=== PATIENT | female | born 1985 | race Hispanic/Latino ===

== ENCOUNTER 2023-12-19 11:17 | Inpatient (IN) | payer SELFPAY ==
[2023-12-19 13:35] LABS: Bacteria/HPF None Seen HPF (None Seen); Bilirubin Negative (Negative); Blood, Urine Negative (Negative); CAUTI Indications for Culture Dysuria,urgency,freq; Clarity Clear (Clear); Glucose, Urine (Dipstick) Greater than 1000 mg/dL (Negative); Ketone, Urine 150 mg/dL (Negative); Leukocyte Negative Leu/uL (Negative); Nitrite Negative (Negative); Pregnancy Test - Urine (BHCG) Negative (Negative); Pregu Control Background? CLEAR/WHITE (CLR/WHITE); Pregu Control Bar Appear? YES (CONTROL BAR); Protein, Urine (Dipstick) Negative (Neg-Trace); RBC/HPF 0-3 HPF (0-3); Specific Gravity 1.036 (1.002-1.036); Specific Gravity, Urine 1.036 (1.002-1.036); Squamous Epithelial 0-3 HPF (0-3); Urobilinogen Normal mg/dL (Less than 2); WBC/HPF 0-3 HPF (0-3)
[2023-12-19 13:36] LABS: Urine Culture Reflex No No
[2023-12-19] MEDS ORDERED: Ketorolac Tromethamine 30 MG (1 mL) VIAL ONE (14:33)
[2023-12-19 15:37] LABS: #Basophils 0.04 10x3/uL (0.0-0.2); %Basophils 0.7 % (0.0-1.0); %Eosinophils 0.7 % (0.0-10.0); %Lymphocytes 30.5 % (21.0-51.0); %Monocytes 7.8 % (0.0-10.0); Hematocrit 40.9 % (36.0-47.0); Hemoglobin 14.1 g/dL (12.0-16.0); Mean Corpuscular HGB CONC 34.5 g/dL (32.0-36.0); Mean Corpuscular Volume 78.4 fL (78.0-98.0); Mean Platelet Volume 9.4 fL (7.4-10.4); Platelet Count 254 10x3/uL (130-400); RBC Distribution Width 17.3 % (11.5-14.5); Red Blood Cell (RBC) Count 5.22 mill/uL (4.20-5.40)
[2023-12-19 15:58] LABS: Troponin I Less than 0.010 ng/mL (< 0.028)
[2023-12-19 16:08] LABS: ALT (SGPT) 9 U/L (8-55); AST (SGOT) 9 U/L (5-34); Albumin 3.4 g/dL (3.5-5.0); Alkaline Phosphatase 118 U/L (40-110); Anion Gap 17 mmol/L (10-20); BUN (Urea Nitrogen) 12 mg/dL (7.0-18.7); Bilirubin, Total 0.4 mg/dL (0.2-1.2); Calc. Creatinine Clearance 0 mL/min (70-130); Calcium 8.9 mg/dL (7.8-10.44); Carbon Dioxide 11 mmol/L (22-29); Chloride 102 mmol/L (98-107); Estimated GFR 86; Globulin 3.8 g/dL (2.4-3.5); Glucose 475 mg/dL (70-105); Lipase 62 U/L (8-78); Potassium 3.1 mmol/L (3.5-5.1); Protein, Total 7.2 g/dL (6.0-8.3); Sodium 127 mmol/L (136-145)
[2023-12-19] MEDS ORDERED: Potassium Chloride 20 MEQ TAB ONE (18:11)
[2023-12-19] MEDS ORDERED: Magnesium 2 GM/50 ML BAG (IN WATER) ONE (18:11)
[2023-12-19 18:30] LABS: Analyzer IN Cardio ER; Base Excess -15.9 mEq/L (-2.0 to +3.0); Calcium, Ionized (venous) 1.07 mmol/L (1.16-1.32); Chloride (VBG) 105 mmol/L (98-106); Hematocrit-VBG 42 % (36.0-47.0); Hemoglobin (Hb) 14.2 g/dL (11.7-15.5); Potassium (VBG) 4.75 mmol/L (3.70-5.30); Sodium 131 mmol/L (133-146); pH (venous) 7.228 (7.32-7.43)
[2023-12-19 18:57] LABS: Actual Bicarbonate (HCO3v) 9.8 mEq/L (22-28)
[2023-12-19] MEDS ORDERED: Ondansetron PF 4 MG/2 ML Vial IVP PRN (20:21)
[2023-12-19] MEDS ORDERED: D5 1/2 NS w/20 mEq KCL 1,000 ML IV PRN (20:21)
[2023-12-19] MEDS ORDERED: Calcium Carbonate 500 MG ChewTAB PO PRN (20:21)
[2023-12-19] MEDS ORDERED: Dextrose 50% Abboject 50 ML SYRINGE SLOW IVP PRN (20:21)
[2023-12-19] MEDS ORDERED: Sodium Chloride 0.9% 1,000 ML IV PRN ×4 (20:21)
[2023-12-19] MEDS ORDERED: Dextrose 5 %-0.45 % NaCl 1,000 ML IV PRN (20:21)
[2023-12-19] MEDS ORDERED: Ondansetron ODT 4 MG TAB PO PRN (20:21)
[2023-12-19] MEDS ORDERED: Electrolyte Replacement Protocol 1 EACH IVPB PRN (20:21)
[2023-12-19] MEDS ORDERED: NS 0.9% w/ 20 MEQ KCL 1,000 ML IV PRN ×2 (20:21)
[2023-12-19] MEDS ORDERED: Acetaminophen 325 MG TAB PO PRN (20:21)
[2023-12-19] MEDS ORDERED: NS 0.9% w/ 20 MEQ KCL 0 ML ONE (20:27)
[2023-12-19] MEDS ORDERED: INSULIN REGULAR IN 0.9 % NACL 100 ML IVPB SCH (20:30)
[2023-12-19 20:34] LABS: ALT (SGPT) 8 U/L (8-55); AST (SGOT) 8 U/L (5-34); Albumin 3.2 g/dL (3.5-5.0); Alkaline Phosphatase 99 U/L (40-110); Anion Gap 19 mmol/L (10-20); BUN (Urea Nitrogen) 9 mg/dL (7.0-18.7); Bilirubin, Total 0.3 mg/dL (0.2-1.2); Calc. Creatinine Clearance 0 mL/min (70-130); Carbon Dioxide 11 mmol/L (22-29); Chloride 105 mmol/L (98-107); Estimated GFR 114; Globulin 3.5 g/dL (2.4-3.5); Glucose 251 mg/dL (70-105); Potassium 2.8 mmol/L (3.5-5.1); Protein, Total 6.7 g/dL (6.0-8.3); Sodium 132 mmol/L (136-145)
[2023-12-19] MEDS ORDERED: traMADol HCl 50 MG TAB PO PRN (21:00)
[2023-12-19 21:39] LABS: Anion Gap 20 mmol/L (10-20); BUN (Urea Nitrogen) 9 mg/dL (7.0-18.7); Calc. Creatinine Clearance 0 mL/min (70-130); Calcium 8.4 mg/dL (7.8-10.44); Carbon Dioxide 10 mmol/L (22-29); Chloride 107 mmol/L (98-107); Estimated GFR 112; Glucose 250 mg/dL (70-105); Potassium 2.9 mmol/L (3.5-5.1); Sodium 134 mmol/L (136-145)
[2023-12-19] MEDS: Lactated Ringer's 1,000 ML IV SCH ×2 (22:19→23:16)
[2023-12-19] MEDS: Potassium Chloride 20 MEQ TAB PO SCH (22:20)
[2023-12-19] MEDS ORDERED: Potassium Chloride 20 MEQ (100 mL) BAG ONE (23:02)
[2023-12-19] MEDS ORDERED: Sodium Bicarbonate Tab 325 MG TAB ONE (23:02)
[2023-12-19] MEDS: Potassium Chloride 20 MEQ in Premix 1 BAG IVPB SCH (23:15)
[2023-12-19] MEDS: Sodium Bicarbonate Tab 325 MG TAB PO SCH (23:16)
[2023-12-20] MEDS ORDERED: Potassium Chloride 20 MEQ (100 mL) BAG ONE ×4 (00:47→08:28)
[2023-12-20 01:59] LABS: Anion Gap 21 mmol/L (10-20); BUN (Urea Nitrogen) 6 mg/dL (7.0-18.7); Calc. Creatinine Clearance 0 mL/min (70-130); Calcium 7.7 mg/dL (7.8-10.44); Carbon Dioxide 8 mmol/L (22-29); Chloride 107 mmol/L (98-107); Estimated GFR 118; Glucose 226 mg/dL (70-105); Potassium 3.1 mmol/L (3.5-5.1); Sodium 133 mmol/L (136-145)
[2023-12-20] MEDS ORDERED: Insulin Lispro 100 UNIT/ML 10 ML VIAL SC PRN (02:14)
[2023-12-20] MEDS ORDERED: Sodium Bicarb 50 MEQ/50 ML Abboject 8.4% SYRINGE IVP SCH (02:15)
[2023-12-20] MEDS ORDERED: Potassium Chloride 20 MEQ TAB PO SCH (02:30)
[2023-12-20] MEDS: Sodium Bicarbonate 150 MEQ in Sterile Water 1,000 ML IV SCH (02:45)
[2023-12-20] MEDS ORDERED: D5 1/2 NS w/20 mEq KCL 1,000 ML ONE (03:13)
[2023-12-20] MEDS: Potassium Chloride 20 MEQ in Premix 1 BAG IVPB SCH ×4 (03:23→15:36)
[2023-12-20] MEDS: D5 1/2 NS w/20 mEq KCL 1,000 ML IV SCH (03:30)
[2023-12-20 03:47] LABS: Analyzer IN Cardio ER; Base Excess -14.7 mEq/L (-2.0 to +3.0); Calcium, Ionized (venous) 1.12 mmol/L (1.16-1.32); Chloride (VBG) 105 mmol/L (98-106); Hematocrit-VBG 43 % (36.0-47.0); Hemoglobin (Hb) 14.7 g/dL (11.7-15.5); Potassium (VBG) 3.48 mmol/L (3.70-5.30); Sodium 133 mmol/L (133-146); pH (venous) 7.264 (7.32-7.43)
[2023-12-20 03:51] LABS: #Basophils 0.04 10x3/uL (0.0-0.2); %Basophils 0.7 % (0.0-1.0); %Eosinophils 1.4 % (0.0-10.0); %Lymphocytes 33.1 % (21.0-51.0); %Monocytes 7.7 % (0.0-10.0); %Neutrophils 56.8 % (42.0-75.0); Hematocrit 39.7 % (36.0-47.0); Hemoglobin 13.4 g/dL (12.0-16.0); Mean Corpuscular HGB CONC 33.8 g/dL (32.0-36.0); Mean Corpuscular Hemoglobin 27.4 pg (27.0-31.0); Mean Corpuscular Volume 81.2 fL (78.0-98.0); Mean Platelet Volume 9.5 fL (7.4-10.4); Platelet Count 230 10x3/uL (130-400); RBC Distribution Width 17.9 % (11.5-14.5); Red Blood Cell (RBC) Count 4.89 mill/uL (4.20-5.40)
[2023-12-20 04:06] LABS: Hemoglobin A1c Greater than 14.0 % (4.0-6.0)
[2023-12-20 04:08] LABS: Actual Bicarbonate (HCO3v) 10.2 mEq/L (22-28)
[2023-12-20] MEDS ORDERED: Electrolyte Replacement Protocol IVPB SCH (04:59)
[2023-12-20] MEDS ORDERED: Dextrose 50% Abboject 50 ML SYRINGE SLOW IVP PRN (04:59)
[2023-12-20] MEDS ORDERED: INSULIN REGULAR IN 0.9 % NACL 100 ML IVPB SCH (05:00)
[2023-12-20] MEDS ORDERED: INSULIN REGULAR IN 0.9 % NACL 100 ML ONE (05:21)
[2023-12-20] MEDS: D5 LR w/20 mEq KCL 1,000 ML IV SCH (05:30)
[2023-12-20 06:03] LABS: ALT (SGPT) 9 U/L (8-55); AST (SGOT) 7 U/L (5-34); Albumin 2.6 g/dL (3.5-5.0); Alkaline Phosphatase 73 U/L (40-110); Anion Gap 20 mmol/L (10-20); BUN (Urea Nitrogen) 5 mg/dL (7.0-18.7); Bilirubin, Total 0.4 mg/dL (0.2-1.2); Calc. Creatinine Clearance 98 mL/min (70-130); Calcium 7.8 mg/dL (7.8-10.44); Carbon Dioxide 11 mmol/L (22-29); Cardiac Risk 7.6 (Less than 4.5); Chloride 107 mmol/L (98-107); Cholesterol 197 mg/dl (< 200 Desired); Estimated GFR 114; Globulin 3.1 g/dL (2.4-3.5); Glucose 267 mg/dL (70-105); HDL Cholesterol 26 mg/dL (>60 Neg Risk); LDL Cholesterol, Calculated 137 mg/dL; Protein, Total 5.7 g/dL (6.0-8.3); Sodium 135 mmol/L (136-145); Triglycerides 170 mg/dL (Less than 150)
[2023-12-20] MEDS ORDERED: Morphine 2 MG/ML VIAL SLOW IVP SCH (07:00)
[2023-12-20] MEDS ORDERED: Sodium Bicarb 50 MEQ/50 ML Abboject 8.4% SYRINGE ONE (07:52)
[2023-12-20] MEDS ORDERED: NOREPINEPHRINE 8 MG/250 ML-D5W 250 ML ONE (07:52)
[2023-12-20] MEDS ORDERED: NOREPINEPHRINE 8 MG/250 ML-D5W 250 ML IVPB SCH (08:00)
[2023-12-20 08:04] LABS: Troponin I Less than 0.010 ng/mL (< 0.028)
[2023-12-20] MEDS: Lactated Ringer's 1,000 ML IV SCH ×2 (08:24→19:31)
[2023-12-20] MEDS: Sodium Bicarb 50 MEQ/50 ML Abboject 8.4% SYRINGE IVP SCH (08:24)
[2023-12-20] MEDS ORDERED: Iopamidol-370 76% 500 ML MDV (1 ML CHARGE) ONE (10:18)
[2023-12-20] MEDS ORDERED: Albumin 25% 100 ML ONE (10:21)
[2023-12-20 10:22] LABS: Actual Bicarbonate (HCO3v) 19.5 mEq/L (22-28); Analyzer IN Cardio ER; Base Excess -3.3 mEq/L (-2.0 to +3.0); Chloride (VBG) 106 mmol/L (98-106); Hematocrit-VBG 38 % (36.0-47.0); Potassium (VBG) 2.74 mmol/L (3.70-5.30); Sodium 134 mmol/L (133-146); pH (venous) 7.449 (7.32-7.43)
[2023-12-20] MEDS ORDERED: Enoxaparin 40 MG (0.4 mL) SYRINGE ONE (10:26)
[2023-12-20] MEDS ORDERED: Dextrose 10% in Water 250 ML ONE (10:53)
[2023-12-20] MEDS: Albumin 25% 25 GM (100 mL) BOT IVPB SCH (10:55)
[2023-12-20] MEDS: Enoxaparin 40 MG (0.4 mL) SYRINGE SC SCH (10:55)
[2023-12-20 10:56] LABS: Anion Gap 15 mmol/L (10-20); BUN (Urea Nitrogen) Less than 4 mg/dL (7.0-18.7); Calc. Creatinine Clearance 132 mL/min (70-130); Calcium 7.7 mg/dL (7.8-10.44); Carbon Dioxide 14 mmol/L (22-29); Chloride 109 mmol/L (98-107); Estimated GFR 123; Glucose 127 mg/dL (70-105); Sodium 135 mmol/L (136-145)
[2023-12-20] MEDS ORDERED: cefTRIAXone (ROCEPHIN) 2 GM VIAL ONE (11:18)
[2023-12-20] MEDS ORDERED: Sodium Chloride 0.9% 100 ML ONE (11:19)
[2023-12-20] MEDS: cefTRIAXone\\ROCEPHIN 2 GM in Sodium Chloride 0.9% 100 ML IVPB SCH (11:23)
[2023-12-20 14:01] LABS: Anion Gap 18 mmol/L (10-20); BUN (Urea Nitrogen) Less than 4 mg/dL (7.0-18.7); Calc. Creatinine Clearance 108 mL/min (70-130); Calcium 8.1 mg/dL (7.8-10.44); Carbon Dioxide 18 mmol/L (22-29); Chloride 102 mmol/L (98-107); Estimated GFR 117; Glucose 409 mg/dL (70-105); Sodium 135 mmol/L (136-145)
[2023-12-20 14:45] VITALS: BMI 20.2
[2023-12-20] MEDS: Polyethylene Glycol 3350 17 GM Packet PO SCH (17:00)
[2023-12-20 19:09] LABS: Anion Gap 7 mmol/L (10-20); BUN (Urea Nitrogen) 4 mg/dL (7.0-18.7); Calc. Creatinine Clearance 127 mL/min (70-130); Carbon Dioxide 26 mmol/L (22-29); Chloride 107 mmol/L (98-107); Estimated GFR 123; Glucose 176 mg/dL (70-105); Potassium 3.3 mmol/L (3.5-5.1); Sodium 137 mmol/L (136-145)
[2023-12-20] MEDS ORDERED: Glucagon 1 MG/ML KIT IM PRN (19:14)
[2023-12-20] MEDS ORDERED: Dextrose 5% in Water 1,000 ML IV PRN (19:14)
[2023-12-20] MEDS: Insulin Glargine 30 UNITS/0.3 ML VIAL SC SCH (19:31)
[2023-12-20] MEDS: Famotidine/PF 20 mg/2ml Vial SLOW IVP SCH (20:08)
[2023-12-20] MEDS: Senokot S 8.6-50 MG TAB PO PRN (23:45)
[2023-12-21 04:14] LABS: ALT (SGPT) Less than 5 U/L (8-55); AST (SGOT) 8 U/L (5-34); Albumin 2.5 g/dL (3.5-5.0); Alkaline Phosphatase 58 U/L (40-110); Anion Gap 11 mmol/L (10-20); BUN (Urea Nitrogen) 5 mg/dL (7.0-18.7); Bilirubin, Total 0.3 mg/dL (0.2-1.2); Calc. Creatinine Clearance 123 mL/min (70-130); Calcium 8.3 mg/dL (7.8-10.44); Carbon Dioxide 24 mmol/L (22-29); Chloride 104 mmol/L (98-107); Estimated GFR 122; Globulin 2.4 g/dL (2.4-3.5); Glucose 251 mg/dL (70-105); Potassium 3.1 mmol/L (3.5-5.1); Protein, Total 4.9 g/dL (6.0-8.3); Sodium 136 mmol/L (136-145)
[2023-12-21] MEDS: Insulin Lispro 100 UNIT/ML 10 ML VIAL SC PRN (04:21)
[2023-12-21] MEDS: Potassium Chloride 20 MEQ in Premix 1 BAG IVPB SCH (06:26)
[2023-12-21] MEDS: Insulin Glargine 30 UNITS/0.3 ML VIAL SC SCH ×2 (08:29→20:51)
[2023-12-21] MEDS: Polyethylene Glycol 3350 17 GM Packet PO SCH (08:30)
[2023-12-21 13:55] LABS: Potassium 4.1 mmol/L (3.5-5.1)
[2023-12-22 05:19] LABS: Anion Gap 9 mmol/L (10-20); BUN (Urea Nitrogen) 5 mg/dL (7.0-18.7); Calc. Creatinine Clearance 153 mL/min (70-130); Calcium 8.2 mg/dL (7.8-10.44); Carbon Dioxide 30 mmol/L (22-29); Chloride 103 mmol/L (98-107); Estimated GFR 126; Glucose 159 mg/dL (70-105); Potassium 3.1 mmol/L (3.5-5.1); Sodium 139 mmol/L (136-145)
[2023-12-22] MEDS: Potassium Chloride 20 MEQ TAB PO SCH (08:24)
[2023-12-22 12:08] VITALS: TEMP 98
[2023-12-22 15:31] VITALS: BP 100/68
[2023-12-22 16:25] LABS: Reference Lab Name LABCORP
[2023-12-22 16:26] LABS: Ref Lab Test Ordered ANTI-GAD-65
== END 2023-12-22 15:20 | disposition home or self-care (01) | DRG 637 ==
LOC: ERS 11:17 → SUATTDRO 11:17 → ERHOLD 20:52 → CCU 12-20 14:27 → MSONC 12-21 15:44
PROVIDERS: ADMIT Internal Medicine; ATTEND Family Medicine
PROC: 3E033XZ Introduction of Vasopressor into Peripheral Vein, Percutaneous Approach (ICD-10-PCS; principal; 2023-12-20)
PROC: 30233J1 Transfusion of Nonautologous Serum Albumin into Peripheral Vein, Percutaneous Approach (ICD-10-PCS; 2023-12-20)
DX: E11.10 Type 2 diabetes mellitus with ketoacidosis without coma (principal); R57.8 Other shock; E87.1 Hypo-osmolality and hyponatremia; E11.65 Type 2 diabetes mellitus with hyperglycemia; E87.6 Hypokalemia; R33.9 Retention of urine, unspecified; E86.0 Dehydration; Z79.899 Other long term (current) drug therapy
CPT/HCPCS: 36415; 36416; 71045; 74177; 80048; 80053; 80061; 81001; 81025; 82010; 82805; 83036; 83525; 83690; 83735; 83930; 84443; 84484; 84681; 85025; 93005; 93010; A4217; J0696; J1650; J1815; J1885; J3475; J3480; J3490; J7120; P9047; Q9967